=== PATIENT | male | born 1950 ===

== ENCOUNTER 2019-10-31 23:16 | Emergency (ER) | payer OTHER ==
--- NOTE | 2019-11-01 00:10 | CT ---
INDICATION: confusion CT HEAD WITHOUT CONTRAST TECHNIQUE: Multiple axial CT images were performed through the head without intravenous contrast administration. COMPARISON: No previous studies are currently available for comparison. FINDINGS: No acute intracranial hemorrhage is identified. No extra-axial collections are evident and there is no mass effect or midline shift. Ventricles are normal in size and configuration. Brain parenchyma appears normal with unremarkable amor-white differentiation. Osseous structures are within normal limits and no fractures are seen. Included portions of the paranasal sinuses and mastoid air cells are normally aerated. IMPRESSION: Normal non-contrast head CT. BIBIANA GARCIA MD [facility] Dictated by: Cash Garcia MD @ 11/01/2019 00:10:04 (Electronically Signed)
[2019-11-01 00:27] LABS: BLOOD UREA NITROGEN,BUN 25 mg/dL (7.0-18.0); CARBON DIOXIDE,CO2 28.7 mmol/L (21.0-32.0); CHLORIDE,CL 104 mmol/L (98-107); GLUCOSE RANDOM 114 mg/dL (74-106); POTASSIUM,K 4.5 mmol/L (3.5-5.1); SODIUM,NA 142 mmol/L (136-148)
--- NOTE | 2019-11-01 00:44 | EDM.PDOC ---
ED HPI GENERAL MEDICAL PROBLEM - General Chief Complaint: General Stated Complaint: MEMORY LOSS Time Seen by Provider: 10/31/19 23:25 Source of Information: Reports: Patient, Significant Other - History of Present Illness INITIAL COMMENTS - FREE TEXT/NARRATIVE: The patient is a 69-year-old male with no reported medical history who presents to the ER with his secondary to transient confusion. Per the patient, he is having trouble putting everything together as everything appears he is he. He states that he appeared confused. Per the patient's , a little after having sex, the patient was confused and was having trouble remembering things correctly. He specifically remembers trying to look for his truck but he was looking on the wrong part of the property. He was also having trouble remembering other things. His verifies this and states that it probably lasted about 20 minutes. No speech slurring, headache, no shaking, no loss of consciousness, no recent fevers, no head injuries, no difficulty walking, no changes in vision, no other acute complaints. Currently he is normal. - Related Data Allergies Allergy/AdvReac Type Severity Reaction Status Date / Time No Known Allergies Allergy Verified 10/31/19 23:27 Home Meds: Home Meds . [No Known Home Meds] 07/18/16 [History] Past Medical History HEENT History: Reports: None Cardiovascular History: Reports: None Respiratory History: Reports: None Gastrointestinal History: Reports: None Genitourinary History: Reports: None Musculoskeletal History: Reports: Other (See Below) Other Musculoskeletal History: Back Surgery Neurological History: Reports: None Psychiatric History: Reports: None Endocrine/Metabolic History: Reports: None Insulin Pump Model and [employer] Analyst: None Hematologic History: Reports: None Immunologic History: Reports: None Oncologic (Cancer) History: Reports: None Dermatologic History: Reports: None - Infectious Disease History Infectious Disease History: Reports: None - Past Surgical History Head Surgeries/Procedures: Reports: None HEENT Surgical History: Reports: None Cardiovascular Surgical History: Reports: None Musculoskeletal Surgical History: Reports: Carpal Tunnel, Other (See Below) Social & Family History - Family History HEENT: Reports: None Cardiac: Reports: None Endocrine/Metabolic: Reports: Diabetes, type II - Tobacco Use Smoking Status *Q: Never Smoker - Caffeine Use Caffeine Use: Reports: Coffee - Recreational Drug Use Recreational Drug Use: No ED ROS GENERAL - Review of Systems Review Of Systems: See Below (Positive for transient confusion, negative for headache, negative for speech slurring, negative for seizures, negative for visual changes, negative for fevers, negative for weakness, all other Positives and pertinent negatives as per HPI. All other pertinent systems were reviewed and are negative) ED EXAM, GENERAL - Physical Exam Exam: See Below Free Text/Narrative:: Constitutional: No acute distress, Non-toxic appearance HEENT.: Normocephalic, Atraumatic, PERRL, EOMI, External ears are atraumatic, nares are patent without epistaxis Neck: Normal range of motion, Trachea Midline, No stridor Respiratory.: No respiratory distress, No tachypnea, Lungs Clear to Auscultation bilaterally without wheezes, rales, or rhonchi Cardiovascular.: Regular rate and Rhythm without murmurs, rubs, or gallops, good peripheral perfusion GI: Abdomen soft and non tender, no masses, no rebound, rigidity, or guarding Genital Urinary: Deferred Musculoskeletal: Good range of motion. All 4 extremities present and atraumatic , no edema Back: Full Range of Motion Skin: Warm, Dry, Color is ethnicity appropriate, No acute rash. Lymphatic: No lymphadenopathy noted Neurological: Alert, Awake and oriented x 3, No focal deficits noted appreciate , GCS 15, NIH 0, cerebellar function tests intact Psych: Affect, Judgement, mood normal Course - Vital Signs Text/Narrative:: Upon arrival the patient's transient confusion has already resolved. The patient has no history of alcoholism, drug use, etc. Given the history, his completely normal neurological exam, and negative work- up I believe that this patient is a low risk per history and exam for any acute malignant pathology such as a stroke, large brain mass, seizures, and no signs of any electrolyte disorder such as hyponatremia, renal failure, etc. that the patient can be safely discharged home and follow-up with the primary care physician which will be provided for him. Last Recorded V/S: Last Vital Signs Temp 36.2 C 10/31/19 23:25 Pulse 74 10/31/19 23:25 Resp 18 10/31/19 23:25 BP 155/97 H 10/31/19 23:25 Pulse Ox 97 10/31/19 23:25 - Orders/Labs/Meds Labs: Laboratory Tests 04/08/20 04/08/20 Range/Units 23:50 23:50 WBC 7.93 (4.0-11.0) K/uL RBC 5.24 (4.50-5.90) M/uL Hgb 16.3 (13.0-17.0) g/dL Hct 47.8 (38.0-50.0) % MCV 91.2 (80.0-98.0) fL MCH 31.1 (27.0-32.0) pg MCHC 34.1 (31.0-37.0) g/dL RDW Std Deviation 43.7 (28.0-62.0) fl RDW Coeff of Siddharth 13 (11.0-15.0) % Plt Count 197 (150-400) K/uL MPV 10.10 (7.40-12.00) fL Neut % (Auto) 68.2 (48.0-80.0) % Lymph % (Auto) 20.1 (16.0-40.0) % [place] % (Auto) 9.6 (0.0-15.0) % Eos % (Auto) 1.6 (0.0-7.0) % Baso % (Auto) 0.5 (0.0-1.5) % Neut # (Auto) 5.4 (1.4-5.7) K/uL Lymph # (Auto) 1.6 (0.6-2.4) K/uL [place] # (Auto) 0.8 (0.0-0.8) K/uL Eos # (Auto) 0.1 (0.0-0.7) K/uL Baso # (Auto) 0.0 (0.0-0.1) K/uL Nucleated RBC % 0.0 /100WBC Nucleated RBCs # 0 K/uL Sodium 142 (136-148) mmol/L Potassium 4.5 (3.5-5.1) mmol/L Chloride 104 (98-107) mmol/L Carbon Dioxide 28.7 (21.0-32.0) mmol/L BUN 25 H (7.0-18.0) mg/dL Creatinine 1.1 (0.8-1.3) mg/dL Est Cr Clr Drug Dosing TNP Estimated GFR (MDRD) > 60.0 ml/min Glucose 114 H (74-106) mg/dL Calcium 9.4 (8.5-10.1) mg/dL Total Bilirubin 0.4 (0.2-1.0) mg/dL AST 28 (15-37) IU/L ALT 40 (14-63) IU/L Alkaline Phosphatase 54 (46-116) U/L Total Protein 7.7 (6.4-8.2) g/dL Albumin 4.2 (3.4-5.0) g/dL Globulin 3.5 (2.6-4.0) g/dL Albumin/Globulin Ratio 1.2 (0.9-1.6) Departure - Departure Time of Disposition: 00:43 Disposition: Home, Self-Care 01 Condition: Good Clinical Impression: Transient confusion - Discharge Information Instructions: Confusion Referrals: PCP,None [Primary Care Provider] - Forms: ED Department Discharge Additional Instructions: Follow-up with the primary care physician provided to you. Return to the ER if you are having trouble speaking, having a severe headache, cannot move part of your body or any other concerns. Sepsis Event Note - Evaluation Sepsis Screening Result: No Definite Risk - Focused Exam Vital Signs: Vital Signs Temp Pulse Resp BP Pulse Ox 10/31/19 23:25 36.2 C 74 18 155/97 H 97 Date Exam was Performed: 11/01/19 Time Exam was Performed: 00:59
[2019-11-01 01:26] VITALS: BP 148/99; PULSE 66
== END 2019-11-01 01:00 | disposition home or self-care (01) ==
LOC: MW.ED 23:16
DX: R41.0 Disorientation, unspecified (principal)
CPT/HCPCS: 36415; 70450; 70450-26; 80053; 85025; 99283; 99285-25